=== PATIENT | male | born 1995 | race Caucasian/White ===

== ENCOUNTER 2021-04-17 04:58 | Emergency (ER) | payer OTHER, SELFPAY ==
[2021-04-17 05:00] VITALS: BP 139/93; PULSE 139; RESP 16; TEMP 37.9; O2SAT 97
--- NOTE | 2021-04-17 05:11 | ED.NAVMDI ---
HPI - Nausea/Vomiting/Diarrhea General Chief complaint: Nausea/Vomiting/Diarrhea Stated complaint: vomit blood and diarrhea Time Seen by Provider: 04/17/21 05:06 Source: patient History of Present Illness HPI Narrative: Patient presents with nausea vomiting and diarrhea. Patient ports he has had diarrhea all evening and this prior to calling EMS he had multiple episodes of emesis his last episode he noted dark brown-red substance he was concerned about blood so he came to the ER for evaluation. Reports he had Taco Crawford this evening does not remember any red dye substances. He denies any NSAID use never had symptoms like this before he was concerned so came to ER for evaluation. Reports he has intermittent mild sharp pain in his upper abdomen denies any blood or melena in his stool he denies any fevers Related Data Allergies Allergy/AdvReac Type Severity Reaction Status Date / Time No Known Allergies Allergy Verified 04/17/21 06:21 Review of Systems Review of Systems: CONSTITUTIONAL: Denies fever, chills, or sweats. EYES: Denies visual changes, redness, or discharge. ENT: Denies rhinorrhea, congestion, sore throat, or otalgia. CARDIOVASCULAR: Denies chest pain, palpitations, or edema. RESPIRATORY: Denies cough or dyspnea. GASTROINTESTINAL: Abdominal pain with nausea vomiting diarrhea GENITOURINARY: Denies dysuria or hematuria. SKIN: Denies rash or itching. MUSCULOSKELETAL: Denies back pain, joint pain, or myalgia. NEUROLOGIC: Denies headache, numbness, dizziness, or weakness. PSYCHIATRIC: Denies anxiety or depression. All systems reviewed & are unremarkable except as noted in HPI and below PMFSH Past Medical History Medical History (Updated 04/17/21 @ 06:19 by Calvin Clancy MD) Patient denies significant medical history Social History Social History (Updated 04/17/21 @ 05:16 by Calvin Clancy MD) Smoking status: Never smoker Alcohol intake: current Substance use type: marijuana Exam Narrative: GENERAL: Well-appearing, well-nourished, and in no acute distress. HEAD: Normocephalic, atraumatic. EYES: PERRLA and EOMI. ENT: Nares clear, no rhinorrhea or epistaxis. Mucous membranes moist. NECK: Supple. No masses. No JVD CHEST: Clear to auscultation. No respiratory distress. No wheezes rales or rhonchi HEART: Regular rate and rhythm. No murmur heard. Normal peripheral pulses. ABDOMEN: Soft, nontender, nondistended, normal active bowel sounds. EXTREMITIES: Normal range of motion. No edema. SKIN: Warm, dry, no rash. NEURO: No focal deficits. Alert and oriented x3. PSYCH: Normal mood and affect. Course Reevaluation(s) Reevaluation #1: Patient reports feeling much improved results and plan reviewed with patient. Patient is comfortable with the outpatient plan. Patient will complete fluids prior to discharge and obtain another set of vital signs. Heart rate has been gradually improved throughout his ER stay Date: 04/17/21 Time: 06:15 Vital Signs Vital signs: Vital Signs Temperature 37.9 C H 04/17/21 05:00 Pulse Rate 139 H 04/17/21 05:00 Respiratory Rate 16 04/17/21 05:00 Blood Pressure 139/93 H 04/17/21 05:00 Pulse Oximetry 97 04/17/21 05:00 Temperature 37.9 C H 04/17/21 05:00 Pulse Rate 105 H 04/17/21 06:31 Respiratory Rate 22 H 04/17/21 06:31 Blood Pressure 137/70 04/17/21 06:00 Pulse Oximetry 100 04/17/21 06:31 MDM - Nausea/Vomiting/Diarrhea MDM Narrative Medical decision making narrative: H&P as above, vs with tachycardia improving with fluids, pt looks clinically well, exam with nonacute abdomen, labs with mild leukocytosis otherwise reassuring no elevation in BUN to creatinine, additional labs/img considered, symptomatic relief available as needed, on reevaluation pt continues to looks clinically well. Suspect viral gastroenteritis causing Farhana-Amaya tear, dns significant hemorrhage, mediastinitis, severe sepsis, severe dehydration. plan to tx/monitor as
[2021-04-17 05:17] LABS: Basophils Percent Auto 0.2 % (0.2-1.2); Eosinophils Absolute Auto 0.1 K/mm3 (0-0.3); Eosinophils Percent Auto 0.4 % (0-4.4); Hematocrit 46.2 % (42.0-52.0); Hemoglobin 16.7 g/dL (14.0-18.0); Immature Granulocyte Absolute 0.05 K/mm3 (0.00-0.031); Immature Granulocyte Percent A 0.4 % (0-0.5); Lymphocytes Absolute Auto 0.76 K/mm3 (0.9-3.2); Lymphocytes Percent Auto 6.1 % (18.3-44.2); Mean Corpuscular HGB Conc 36.1 g/dl (32-36); Mean Corpuscular Hemoglobin 29.5 pg (26-34); Mean Corpuscular Volume 81.6 fl (80-100); Mean Platelet Volume 8.5 fl (7.4-10.4); Monocytes Absolute Auto 0.5 K/mm3 (0.1-0.6); Monocytes Percent Auto 4.2 % (2.6-8.5); Neutrophils Absolute Auto 11.1 K/mm3 (1.3-6.7); Neutrophils Percent Auto 88.7 % (45.5-73.1); Platelet Count Result 253 k/mm3 (150-375); Red Blood Count 5.66 M/mm3 (4.6-6.20); Red Cell Distribution Width 11.8 % (11.5-14.5); White Blood Count 12.5 K/mm3 (4.5-10.0)
[2021-04-17 05:33] LABS: Alanine Aminotransferase 25 U/L (4-50); Albumin Level 4.6 g/dL (3.5-5.1); Alkaline Phosphatase 81 U/L (38-126); Anion Gap 9 mmol/L (8-16); Aspartate Amino Transferase 26 U/L (17-59); Bilirubin,Total 0.7 mg/dL (0.2-1.3); Blood Urea Nitrogen 13 mg/dL (9-20); Calcium 9.1 mg/dL (8.4-10.2); Carbon Dioxide 28 mmol/L (22-30); Chloride 102 mmol/L (98-107); Estimated CRCL calculation 158 ml/min; Estimated Glomerular Filt Rate > 60; Glucose 123 mg/dL (65-110); Lipase 34 U/L (23-300); Potassium 3.9 mmol/L (3.4-5.0); Sodium 139 mmol/L (137-145)
[2021-04-17 06:00] VITALS: BP 137/70; PULSE 119; RESP 24; O2SAT 100
[2021-04-17] MEDS: ONDANSETRON INJ 4 MG/2 ML VIAL IV PUSH (06:03)
[2021-04-17] MEDS: SODIUM CHLORIDE 0.9% IV 1,000 ML 999 ML IV CONT (06:03)
[2021-04-17 06:31] VITALS: PULSE 105; RESP 22; O2SAT 100
== END 2021-04-17 06:31 | disposition home or self-care (01) ==
PROVIDERS: Emergency Provider Emergency Medicine
DX: K22.6 Gastro-esophageal laceration-hemorrhage syndrome (principal); R11.2 Nausea with vomiting, unspecified; R19.7 Diarrhea, unspecified
CPT/HCPCS: 36415; 80053; 83690; 85025; 96374; 99284; J2405; J7030

== ENCOUNTER 2021-05-27 12:28 | Emergency (ER) | payer OTHER, SELFPAY ==
[2021-05-27 12:32] VITALS: BP 165/79; PULSE 92; RESP 18; TEMP 36.7; O2SAT 99
[2021-05-27 12:45] LABS: Basophils Percent Auto 0.3 % (0.2-1.2); Eosinophils Absolute Auto 0.3 K/mm3 (0-0.3); Hematocrit 49.1 % (42.0-52.0); Hemoglobin 17.3 g/dL (14.0-18.0); Immature Granulocyte Absolute 0.01 K/mm3 (0.00-0.031); Immature Granulocyte Percent A 0.1 % (0-0.5); Lymphocytes Absolute Auto 2.19 K/mm3 (0.9-3.2); Mean Corpuscular HGB Conc 35.2 g/dl (32-36); Mean Corpuscular Hemoglobin 29.4 pg (26-34); Mean Corpuscular Volume 83.5 fl (80-100); Mean Platelet Volume 8.9 fl (7.4-10.4); Monocytes Absolute Auto 0.4 K/mm3 (0.1-0.6); Monocytes Percent Auto 5.7 % (2.6-8.5); Neutrophils Absolute Auto 4.6 K/mm3 (1.3-6.7); Neutrophils Percent Auto 60.9 % (45.5-73.1); Platelet Count Result 268 k/mm3 (150-375); Red Blood Count 5.88 M/mm3 (4.6-6.20); Red Cell Distribution Width 11.9 % (11.5-14.5); White Blood Count 7.6 K/mm3 (4.5-10.0)
[2021-05-27 12:55] LABS: Alanine Aminotransferase 30 U/L (4-50); Albumin Level 4.8 g/dL (3.5-5.1); Alkaline Phosphatase 78 U/L (38-126); Anion Gap 10 mmol/L (8-16); Aspartate Amino Transferase 28 U/L (17-59); Bilirubin,Total 0.7 mg/dL (0.2-1.3); Blood Urea Nitrogen 10 mg/dL (9-20); Calcium 9.5 mg/dL (8.4-10.2); Carbon Dioxide 26 mmol/L (22-30); Chloride 101 mmol/L (98-107); Estimated CRCL calculation 143 ml/min; Estimated Glomerular Filt Rate > 60; Glucose 124 mg/dL (65-110); Lipase 50 U/L (23-300); Sodium 137 mmol/L (137-145)
--- NOTE | 2021-05-27 16:04 | ED.NAVMDI ---
HPI - Nausea/Vomiting/Diarrhea General Chief complaint: Nausea/Vomiting/Diarrhea Stated complaint: nausea Time Seen by Provider: 05/27/21 15:26 Source: patient Mode of arrival: ambulatory Limitations: no limitations History of Present Illness HPI Narrative: Pt is a 26 y/o male, presents to ED via POV with intermittent episodes of epigastric burning and belching for the past few months that worsened the past 3 days. He denies associated fevers or chills, CP, SOB, abdominal pain, NVDC, hematochezia or melena. His symptoms worsen after eating, when lying supine and when bending over at the waist. He has not attempted any modifying factors. He denies any additional associated symptoms. Associated nausea: No Associated abdominal pain: No Location of pain: none Exacerbating factors: eating and other (refer to HPI) Relieving factors: none Related Data Allergies Allergy/AdvReac Type Severity Reaction Status Date / Time No Known Allergies Allergy Verified 05/27/21 15:20 Review of Systems Review of Systems: refer to HPI Gastrointestinal: Gastrointestinal: Reports as per HPI and Reports no additional gastrointestinal [facility] Past Medical History Medical History Patient denies significant medical history Social History Social History (Updated 04/17/21 @ 05:16 by Calvin Clancy MD) Smoking status: Never smoker Alcohol intake: current Substance use type: marijuana Exam Const: General: cooperative, healthy appearing, comfortable, no acute distress, alert, awake and Physically active Orientation/consciousness: oriented to person, oriented to place, oriented to time and patient oriented x3 Limitations: no limitations HENMT: Head: normal to inspection Ears: hearing grossly normal bilaterally and external ears normal General nose exam: Normal external nose present Face and sinus: normal facial exam, sinuses nontender and face symmetric Mouth: Yes Normal oral and palatal mucosa present and Yes lip normal Teeth and gingiva: dentition normal and gingiva normal Throat: posterior oropharynx normal Eyes: General: appearance normal, both eyes and all related structures Visual Smith: normal visual smith by confrontation Alignment and Position: alignment normal Periorbital: periorbital findings normal Eyelids: eyelids normal Conjunctivae: conjunctivae normal Sclera: sclerae normal Cornea: corneas normal Pupils: Equal, round and reactive pupils present EOM: EOMs intact bilaterally Direct Ophthalmoscopy: normal light reflex Neck: Neck: normal visual inspection, full ROM, no lymphadenopathy, no meningeal signs and trachea midline Thyroid: thyroid normal Lymphatic: no lymphadenopathy noted Chest: Chest palpation & inspection: normal inspection of the chest Resp: Effort & Inspection: normal respiratory effort and able to speak in complete sentences Auscultation: clear to auscultation bilaterally Cardio: Jugular venous distension: no JVD Palpation: normal PMI Rate: regular rate Rhythm: regular rhythm Heart sounds: S1 normal heart sound present and S2 normal heart sound present GI: Inspection: normal to inspection GI Palp: Yes Soft to palpation (NT, ND, no HSM, no CVA TTP) Auscultation: normal bowel sounds Rectal Exam: deferred Back/Spine/Pelvis: Back: no CVA tenderness Skin: Lesions: no lesions Rashes: no rashes Course Course Emergency Course: Pt reports his symptoms have improved, epigastric burning is resolved, belching is much better. Plan to discharge home with protonix for home with FU outpatient with PCP for GI referral if symptoms are not improving. Pt is agreeable with plan. Vital Signs Vital signs: Vital Signs Temperature 36.7 C 05/27/21 12:32 Pulse Rate 92 05/27/21 12:32 Respiratory Rate 18 05/27/21 12:32 Blood Pressure 165/79 H 05/27/21 12:32 Pulse Oximetry 99 05/27/21 12:32 Temperature 36.7 C 05/27/21 12:32
[2021-05-27] MEDS: PANTOPRAZOLE SOD SESQUIHYDRATE 20 MG TAB PO (16:16)
[2021-05-27] MEDS: BELLADONNA ALK/PHENOB ELIX 10 ML, MAG HYDROX/ALUMINUM HYD/SIMETH 30 ML, LIDOCAINE HCL 2... PO (16:16)
[2021-05-27 16:27] LABS: Add Urine Microscopic? YES; Appearance Urine Clear (Clear); Bilirubin Urine Negative (Negative); Blood Urine 1+ (Negative); Color Urine Yellow (Yellow); Glucose Urine UA Negative (Negative); Ketones Urine Negative (Negative); Leukocyte Esterase Ur Negative LEU/UL (Negative); Nitrate Urine Negative (Negative); Protein Urine Negative (Negative); RBC Urine 0-2 /hpf (0-2); Specific Grav Ur 1.015 (1.001-1.035); Urobilinogen Urine Negative mg/dL (<2.0); WBC Urine 0-3 /hpf
== END 2021-05-27 17:05 | disposition home or self-care (01) ==
PROVIDERS: Emergency Medicine; Emergency Provider Nurse Practitioner Family
DX: K21.9 Gastro-esophageal reflux disease without esophagitis (principal)
CPT/HCPCS: 36415; 80053; 81001; 83690; 85025; 99283; A9270

== ENCOUNTER 2021-06-04 11:34 | Outpatient (CLI) | payer OTHER, SELFPAY ==
[2021-06-04 12:21] LABS: Cholesterol 176 mg/dL (0-200); HDL Direct 41 mg/dL; Triglycerides 160 mg/dL (<150)
[2021-06-04 12:25] LABS: Hemoglobin A1C 4.9 % (<5.7)
[2021-06-04 12:32] LABS: LDL Cholesterol Direct 95 mg/dL
[2021-06-04 13:01] LABS: Vitamin D 25 Hydroxy 33.8 ng/mL
== END 2021-06-04 11:35 | disposition home or self-care (01) ==
LOC: ANHLAB 11:35
PROVIDERS: Visit Provider Family Medicine
DX: R73.9 Hyperglycemia, unspecified (principal); E55.9 Vitamin D deficiency, unspecified; Z13.220 Encounter for screening for lipoid disorders
CPT/HCPCS: 36415; 80061; 82306; 83036

== ENCOUNTER 2023-01-02 18:06 | Emergency (ER) | payer OTHER, SELFPAY ==
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
[2023-01-02 18:20] VITALS: BP 152/91; PULSE 112; RESP 18; O2SAT 99
== END 2023-01-02 18:53 | disposition home or self-care (01) ==
PROVIDERS: Emergency Provider Emergency Medicine
DX: S39.92XA Unspecified injury of lower back, initial encounter (principal); V43.52XA Car driver injured in collision with other type car in traffic accident, initial encounter
CPT/HCPCS: 99282

== ENCOUNTER 2023-01-16 17:23 | Emergency (ER) | payer OTHER, SELFPAY ==
[2023-01-16] VITALS (15 sets, daily range): BP systolic 97–109; BP diastolic 60–74; PULSE 100–122; RESP 12–28; TEMP 37; O2SAT 96–99
--- NOTE | ~2023-01-16 | XR_ITS ---
EXAMINATION: XR chest 1V portable Exam Date/Time: 01/16/2023 20:00 DRAGSAW OPERATOR HISTORY: URI/Tachycardia, COUGH Comparison: None. RESULT: Lines, tubes, and devices: None. Lungs and pleura: Rightward rotation, slightly low volumes with crowding, otherwise clear. Cardiomediastinal silhouette: Unremarkable. Other: No acute osseous or upper abdominal finding. IMPRESSION: No acute cardiopulmonary process. Reviewed, dictated and finalized at location K. SAW OPERATOR
--- NOTE | 2023-01-16 20:12 | ECG_ITS ---
Measurements Intervals [place] Rate: 117 P: 33 NH: 112 QRS: -11 QRSD: 93 T: 33 QT: 303 QTc: 423 Interpretive Statements SINUS TACHYCARDIA WITH SHORT NH INTERVAL BORDERLINE R WAVE PROGRESSION, ANTERIOR LEADS MINIMAL Q WAVES- HIGH LATERAL LEADS ABNORMAL ECG NO PREVIOUS ECG AVAILABLE FOR COMPARISON Electronically Signed On 01-16-2023 22:15:06 TEA TASTER by Gaurav Wallis D.O.
[2023-01-16 20:26] LABS: Basophils Percent Auto 0.1 % (0.2-1.2); Eosinophils Percent Auto 0.2 % (0-4.4); Hematocrit 45.4 % (42.0-52.0); Hemoglobin 16.1 g/dL (14.0-18.0); Immature Granulocyte Absolute 0.02 K/mm3 (0.00-0.031); Immature Granulocyte Percent A 0.2 % (0-0.5); Lymphocytes Absolute Auto 0.33 K/mm3 (0.9-3.2); Lymphocytes Percent Auto 3.8 % (18.3-44.2); Mean Corpuscular HGB Conc 35.5 g/dl (32-36); Mean Corpuscular Hemoglobin 29.2 pg (26-34); Mean Corpuscular Volume 82.4 fl (80-100); Mean Platelet Volume 8.7 fl (7.4-10.4); Monocytes Absolute Auto 0.5 K/mm3 (0.1-0.6); Monocytes Percent Auto 5.8 % (2.6-8.5); Neutrophils Absolute Auto 7.7 K/mm3 (1.3-6.7); Neutrophils Percent Auto 89.9 % (45.5-73.1); Platelet Count Result 221 k/mm3 (150-375); Red Blood Count 5.51 M/mm3 (4.6-6.20); Red Cell Distribution Width 11.6 % (11.5-14.5); White Blood Count 8.6 K/mm3 (4.5-10.0)
--- NOTE | 2023-01-16 20:32 | ED.GENADULT ---
HPI - General Adult General Chief complaint: Nausea/Vomiting/Diarrhea Stated complaint: sinus pressure, nausea Time Seen by Provider: 01/16/23 20:04 History of Present Illness HPI narrative: This is a 27-year-old male presenting ED with 1 day of URI symptoms. Patient's symptoms azo congestion sore throat and ear pain. He has also had 1 episode of nausea and vomiting. Patient denies chest pain, shortness of breath, abdominal pain, or urinary symptoms. Decreased oral intake. No diarrhea. Related Data Home Medications Medication Instructions Recorded Confirmed cyclobenzaprine 10 mg tablet 10 mg PO TID 01/02/23 naproxen 500 mg tablet 500 mg PO BID 01/02/23 Allergies Allergy/AdvReac Type Severity Reaction Status Date / Time No Known Allergies Allergy Verified 01/16/23 17:40 [facility] Past Medical History Medical History Broken toe Patient denies significant medical history Social History Social History Smoking status: Never smoker Alcohol intake: never Substance use: current Substance use type: marijuana Exam Narrative: APPEARANCE: No apparent distress. Head: Bilateral cerumen impaction in the ears, posterior pharynx is non erythematous with no exudates EYES: EOMI, NOSE: Atraumatic NECK: Trachea midline RESPIRATORY: No increased rate of breathing, clear to auscultation CARDIOVASCULAR: Tachycardic, no peripheral edema ABDOMINAL: Non-distended nontender MUSCULOSKELETAl: No obvious deformities NEURO: Alert. Moving 4/4 extremities SKIN:: Warm, dry. Normal color PSYCHIATRIC: Normal affect Course Vital Signs Vital signs: Vital Signs Temperature 98.6 F 01/16/23 17:39 Pulse Rate 120 H 01/16/23 17:39 Respiratory Rate 20 01/16/23 17:39 Blood Pressure 109/71 01/16/23 17:39 Pulse Oximetry 96 01/16/23 17:39 Temperature 98.6 F 01/16/23 17:39 Pulse Rate 104 H 01/16/23 22:00 Respiratory Rate 26 H 01/16/23 22:00 Blood Pressure 101/74 01/16/23 21:16 Pulse Oximetry 96 01/16/23 22:00 Oxygen Delivery Room Air 01/16/23 20:23 Medical Decision Making MDM Narrative Medical decision making narrative: -Course: 27-year-old male presenting with 1 day of flu-like symptoms. Tachycardic on initial presentation. Given NSAIDs and fluid resuscitation. Tachycardia improved. Patient found have influenza A. No other health problems. Patient will undergo trial of outpatient management. Discussed risk benefits of Tamiflu the patient declined. -DDX includes but is not limited to: Viral syndrome, sinusitis, ear infection, bronchitis, flu -Co-morbidities complicating care: GERD -Social determinants of health: Works at the [email or web address], lives with his dad -Independent interpretation of studies: Influenza a positive. CBC normal her metabolic panel unremarkable. Chest x-ray unremarkable per Independent EKG interpretation: Rhythm [sinus], Rate [117], [place] -[normal], [place] -[normal], QRS [narrow], QTC [normal], T waves -[negative for concerning inversions], ST Segments - [Negative for concerning elevations] Final interpretations: Sinus tach -Interventions: 3 L normal saline, Toradol, Tylenol, Zofran -Shared decision making / Disposition: Discharge -RX Motrin Tylenol Zofran Vital Signs Vital Signs: Vital Signs Temperature 98.6 F 01/16/23 17:39 Pulse Rate 120 H 01/16/23 17:39 Respiratory Rate 20 01/16/23 17:39 Blood Pressure 109/71 01/16/23 17:39 Pulse Oximetry 96 01/16/23 17:39 Temperature 98.6 F 01/16/23 17:39 Pulse Rate 104 H 01/16/23 22:00 Respiratory Rate 26 H 01/16/23 22:00 Blood Pressure 101/74 01/16/23 21:16 Pulse Oximetry 96 01/16/23 22:00 Oxygen Delivery Room Air 01/16/23 20:23 Lab Data 01/16/23 20:19 01/16/23 20:19 Labs: Lab Results 01/16/23 01/16/23 Range/Units 20:13 20:19 WBC
[2023-01-16 20:38] LABS: Alanine Aminotransferase 30 U/L (6-50); Albumin Level 4.6 g/dL (3.5-5.1); Alkaline Phosphatase 64 U/L (38-126); Anion Gap 12 mmol/L (8-16); Aspartate Amino Transferase 28 U/L (17-59); Bilirubin,Total 0.6 mg/dL (0.2-1.3); Blood Urea Nitrogen 9 mg/dL (9-20); Calcium 9.3 mg/dL (8.4-10.2); Carbon Dioxide 22 mmol/L (22-30); Chloride 103 mmol/L (98-107); Estimated CRCL calculation 161 ml/min; Estimated Glomerular Filt Rate > 60; Glucose 113 mg/dL (65-110); Lipase 65 U/L (23-300); Potassium 3.6 mmol/L (3.4-5.0); Sodium 137 mmol/L (137-145)
[2023-01-16 20:54] LABS: Influenza A QL RT-PCR Positive (Negative); Influenza B QL RT-PCR Negative (Negative); RSV RNA, RT-PCR Negative (Negative); SARS-CoV-2 RNA PCR Negative (Negative)
[2023-01-16 20:54] LABS: Strep Group A RT-PCR NOT DETECTED (Negative)
[2023-01-16] MEDS: ONDANSETRON INJ 4 MG/2 ML VIAL IV PUSH (21:15)
[2023-01-16] MEDS: SODIUM CHLORIDE 0.9% IV 3,000 ML 999 ML IV CONT (21:16)
[2023-01-16] MEDS: ACETAMINOPHEN 500 MG TABLET 1000 MG PO (21:16)
--- NOTE | 2023-01-16 21:22 | PC.NURSE ---
pt does not want NSAIDs because they state it hurts their stomach
== END 2023-01-16 23:33 | disposition home or self-care (01) ==
PROVIDERS: Emergency Provider Emergency Medicine
DX: J10.1 Influenza due to other identified influenza virus with other respiratory manifestations (principal); Z20.822 Contact with and (suspected) exposure to COVID-19; R00.0 Tachycardia, unspecified; R94.31 Abnormal electrocardiogram [ECG] [EKG]
CPT/HCPCS: 36415; 71045; 80053; 83690; 85025; 87637; 87651; 93005; 96361; 96374; 99284; A9270; J2405; J7030

== ENCOUNTER 2023-04-30 07:55 | Emergency (ER) | payer OTHER, SELFPAY ==
[2023-04-30 07:57] VITALS: BP 142/99; PULSE 117; RESP 24; TEMP 36.1; O2SAT 100
[2023-04-30 08:06] VITALS: O2SAT 98
[2023-04-30 09:18] LABS: Strep Group A RT-PCR NOT DETECTED (Negative)
[2023-04-30 09:29] LABS: Influenza A QL RT-PCR Negative (Negative); Influenza B QL RT-PCR Negative (Negative); RSV RNA, RT-PCR Negative (Negative); SARS-CoV-2 RNA PCR Negative (Negative)
--- NOTE | 2023-04-30 09:32 | ED.GENADULT ---
HPI - General Adult General Chief complaint: Upper Respiratory Infection Stated complaint: panic attack/sore throat Time Seen by Provider: 04/30/23 08:13 History of Present Illness HPI narrative: Patient is a 28-year-old gentleman who presents emergency department with chief complaint of sore throat and upper respiratory symptoms. The patient states that he has had a sore throat for a few days and has been taking NyQuil the patient states he took NyQuil fell asleep with his arm up a bow above his head with the left side of his face leaning against it and when he woke up he had a tingly sensation in his face and his arm felt a little tingly that subsequently has resolved patient states that he looked pale whenever he woke up and his roommate suggested that he be checked out. The patient states he has had some chills also reports that he has history of anxiety disorder and felt very anxious and had a panic attack on the way to the emergency department. The patient denies any other complaints. Related Data Home Medications Medication Instructions Recorded Confirmed cyclobenzaprine 10 mg tablet 10 mg PO TID 01/02/23 naproxen 500 mg tablet 500 mg PO BID 01/02/23 Allergies Allergy/AdvReac Type Severity Reaction Status Date / Time No Known Allergies Allergy Verified 04/30/23 08:08 Review of Systems Review of Systems: A 10 system review of systems was completed on the patient and is negative except for what is stated in the HPI. Nursing and ancillary documentation was reviewed. PMFSH Past Medical History Medical History Broken toe Patient denies significant medical history Social History Social History Smoking status: Never smoker Alcohol intake: never Substance use: current Substance use type: marijuana Exam Narrative: GENERAL: Well-appearing, well-nourished, and in no acute distress. HEAD: Normocephalic, atraumatic. EYES: PERRLA and EOMI. ENT: Nares clear, no rhinorrhea or epistaxis. Mucous membranes moist. NECK: Supple. CHEST: Clear to auscultation. No respiratory distress. HEART: Regular rate and rhythm. No murmur heard. Normal peripheral pulses. ABDOMEN: Soft, nontender, nondistended, normal active bowel sounds. EXTREMITIES: Normal range of motion. No edema. SKIN: Warm, dry, no rash. NEURO: No focal deficits. Alert and oriented x3. PSYCH: Normal mood and affect. Course Vital Signs Vital signs: Vital Signs Temperature 36.1 C L 04/30/23 07:57 Pulse Rate 117 H 04/30/23 07:57 Respiratory Rate 24 H 04/30/23 07:57 Blood Pressure 142/99 H 04/30/23 07:57 Pulse Oximetry 100 04/30/23 07:57 Oxygen Delivery Room Air 04/30/23 07:57 Temperature 36.1 C L 04/30/23 07:57 Pulse Rate 117 H 04/30/23 07:57 Respiratory Rate 24 H 04/30/23 07:57 Blood Pressure 142/99 H 04/30/23 07:57 Pulse Oximetry 98 04/30/23 08:06 Oxygen Delivery Room Air 04/30/23 08:06 Medical Decision Making MDM Narrative Medical decision making narrative: Differential diagnosis includes viral syndrome, strep pharyngitis, anxiety Patient is hemodynamically stable in the emergency department Strep was negative COVID with flu and RSV were negative Vital Signs Vital Signs: Vital Signs Temperature 36.1 C L 04/30/23 07:57 Pulse Rate 117 H 04/30/23 07:57 Respiratory Rate 24 H 04/30/23 07:57 Blood Pressure 142/99 H 04/30/23 07:57 Pulse Oximetry 100 04/30/23 07:57 Oxygen Delivery Room Air 04/30/23 07:57 Temperature 36.1 C L 04/30/23 07:57 Pulse Rate 117 H 04/30/23 07:57 Respiratory Rate 24 H 04/30/23 07:57 Blood Pressure 142/99 H 04/30/23 07:57 Pulse Oximetry 98 04/30/23 08:06 Oxygen Delivery Room Air 04/30/23 08:06 Lab Data Labs: Lab Results 04/30/23 Range/Units 08:47 Influenza A (RT-PCR) Negative (Neg
[2023-04-30 09:53] VITALS: BP 116/77; PULSE 67; RESP 13; TEMP 36.6; O2SAT 97
== END 2023-04-30 09:56 | disposition home or self-care (01) ==
PROVIDERS: Emergency Provider Emergency Medicine
DX: J06.9 Acute upper respiratory infection, unspecified (principal); Z20.822 Contact with and (suspected) exposure to COVID-19
CPT/HCPCS: 87637; 87651; 99283

== ENCOUNTER 2023-05-02 11:27 | Emergency (ER) | payer OTHER, SELFPAY ==
[2023-05-02 11:37] VITALS: BP 163/77; PULSE 100; RESP 24; TEMP 36.6; O2SAT 98
--- NOTE | 2023-05-02 11:58 | ECG_ITS ---
Measurements Intervals [place] Rate: 79 P: 54 [place]: 128 QRS: 21 QRSD: 102 T: 40 QT: 367 QTc: 421 Interpretive Statements SINUS RHYTHM NORMAL ECG COMPARED TO ECG 01/16/2023 20:30:08 SINUS RHYTHM NOW PRESENT Electronically Signed On 05-02-2023 15:10:03 CDT by Gaurav Wallis D.O.
--- NOTE | 2023-05-02 12:08 | PC.NURSE ---
Pt to triage desk, states he is having pain in left side, wrapping from side to back. EKG obtained and shown to EDP
[2023-05-02 12:21] VITALS: BP 135/83; PULSE 115; RESP 18; O2SAT 98
--- NOTE | 2023-05-02 12:23 | PC.NURSE ---
Pt pacing in waiting area, tripped over feet and fell at triage desk. Pt assisted to wheelchair by RN/security and placed in wheelchair. tennis court attendant to triage, assessed pt. VS taken at this time.
--- NOTE | 2023-05-02 14:22 | ED.ANXIETY ---
HPI - Anxiety General Chief Complaint: Anxiety Stated Complaint: anxiety Time Seen by Provider: 05/02/23 13:55 Source: patient Mode of arrival: ambulatory Limitations: no limitations History of Present Illness HPI narrative: 28-year-old male presenting for anxiety reaction. He has had issues with anxiety for a long time especially walking out of the . Recently has come in the hospital twice for anxiety issues in the last few days. Requesting some help him. He says he had a panic attack on the way here and had some paresthesias in his hands and that has gotten better but he still feeling anxious and uncomfortable. No chest pain or shortness of breath Related Data Allergies Allergy/AdvReac Type Severity Reaction Status Date / Time No Known Allergies Allergy Verified 05/02/23 14:05 Review of Systems Review of Systems: All systems reviewed & are unremarkable except as noted in HPI and below PMFSH Past Medical History Medical History Broken toe Patient denies significant medical history Social History Social History Smoking status: Never smoker Alcohol intake: never Substance use: current Substance use type: marijuana Exam Narrative: Constitutional: anxious but otherwise well-appearing Head: Atraumatic, no deformities. Eyes: Pupils equal, round, and reactive to light. Neck: Supple, no tracheal deviation, no JVD. ENMT: Mucous membranes moist Cardiovascular: S1, S2 auscultated. No murmurs, rubs, or gallops. No S3/S4. Normal Distal pulses. No peripheral edema. Respiratory: Lung sounds equal. No wheezes, rales, or rhonchi. Gastrointestinal: Abdomen was soft and non-tender. Non-distended. No rebound or guarding. Genitourinary: Deferred Musculoskeletal: Normal muscle tone and bulk. No obvious deformities or tenderness over extremities. Skin: No rashes. Neurological: Strength 5/5 in extremities. Cranial nerves I-XII grossly intact. Distal sensation intact. Mental Status: Awake, alert and oriented x3. Follows commands. No suicidal ideation or plan. No homicidal ideation or plan. Course Vital Signs Vital signs: Vital Signs Temperature 36.6 C 05/02/23 11:37 Pulse Rate 100 05/02/23 11:37 Respiratory Rate 24 H 05/02/23 11:37 Blood Pressure 163/77 H 05/02/23 11:37 Pulse Oximetry 98 05/02/23 11:37 Oxygen Delivery Room Air 05/02/23 11:37 Temperature 36.6 C 05/02/23 11:37 Pulse Rate 115 H 05/02/23 12:21 Respiratory Rate 18 05/02/23 12:21 Blood Pressure 135/83 05/02/23 12:21 Pulse Oximetry 98 05/02/23 12:21 Oxygen Delivery Room Air 05/02/23 11:37 MDM - Anxiety MDM Narrative Medical decision making narrative: 28-year-old male with history of anxiety and panic disorder presenting with anxiety attack today. On exam initially was tachycardic in triage but no longer tachycardic. Reported having some paresthesias in his fingers but that is gone now that his breathing is improved. Still does appear quite anxious. Will give a dose of Xanax here for his anxiety and short prescription for Xanax. He just lost his insurance and is trying to change a new 1 suicidal trouble getting into a clinic to see a psychiatrist so this short prescription may benefit him. Pt feeling improved and would like to go home at this point. Return precautions were given to the patient include any new or worsening symptoms or development of and not limited to any chest pain, shortness of breath, lightheadedness, abdominal pain, fevers, chills. Patient understands and agrees. They are to follow-up with her PCP. All questions were answered. I reviewed the patient's vital signs, history, allergies, and labs and imaging workup. Discharge Plan Discharge Clinical Impression: Panic disorder, Acute anxiety Patient Disposition: Home, Self-Care Condition: Stable Instr
[2023-05-02 14:30] VITALS: BP 140/92; PULSE 96; RESP 15; O2SAT 99
[2023-05-02] MEDS: ALPRAZolam (*CRX) 0.5 MG TABLET 0.25 MG PO (14:30)
== END 2023-05-02 14:34 | disposition home or self-care (01) ==
PROVIDERS: Emergency Provider Emergency Medicine
DX: F41.0 Panic disorder [episodic paroxysmal anxiety] (principal)
CPT/HCPCS: 93005; 99283; A9270

== ENCOUNTER 2024-04-08 04:10 | Emergency (ER) | payer SELFPAY ==
--- OUTSIDE RECORDS SUMMARY | 2024-04-08 04:11 | XMS_ITS | Referral Summary ---
Author Organization [facility] Address [address] [place] [address] Care Team Providers Care Associate Professor Of Sociology Name Role Phone Unavailable Primary Care Provider Unavailabl e Source Comments [facility],non-owned Affiliates and Associated Physician Practices is amultiple site organization consisting of ambulatory clinics and hospital sitesin [place], [place], [place] and [place]. This disclosure is being madepursuant to the Care Everywhere program and may not contain all information available regarding this patient. Last updated 17.[facility] [employer] Allergies No known active allergies Medications Be aware that medications may not be up to date on this document. Always verify current medications with the patient. No known medications Social History Tobacco Use Types Packs/Day Years Used Date Smoking Tobacco: Never Assessed AUDIT-C Answer Date Recorded Q1: How often do you have a drink containing alcohol? Never 04/18/2023 Q2: How many drinks containi ng alcohol do you have on a typical day when you are drinking? Patient does not drink Q3: How often do you have si x or more drinks on one occasion? Never 04/18/2023 Sex and Gender Information Value Date Recorded Sex Assigned at Not on file Gender Identity Not on file Sexual Orientation Not on file Last Filed Vital Signs Vital Sign Reading Time Taken Comments Blood Pressure 123/79 04/18/2023 4:54 PM MAINTENANCE HELPER Pulse 76 04/18/2023 5:04 PM MAINTENANCE HELPER Temperature 36.6 C (97.8 F) 04/18/2023 4:54 PM MAINTENANCE HELPER Respiratory Rate 10 04/18/2023 5:04 PM MAINTENANCE HELPER Oxygen Saturation 99% 04/18/2023 5:04 PM MAINTENANCE HELPER Inhaled Oxygen Concentration - - Weight 129.3 kg (285 lb) 04/18/2023 4:54 PM MAINTENANCE HELPER Height 190.5 cm (6' 3 ) 04/18/2023 4:54 PM MAINTENANCE HELPER Body Mass Index 35.62 04/18/2023 4:54 PM MAINTENANCE HELPER Plan of Treatment Not on file
--- OUTSIDE RECORDS SUMMARY | 2024-04-08 04:11 | XMS_ITS | Patient Health Summary ---
Author Organization [facility] [employer] Address [address] [place] [address] Care Team Providers Care Clinic Coordinator Name Role Phone Unavailable Primary Care Provider Unavailabl e Note from [facility],non-owned Affiliates and Associated Physician Practices is amultiple site organization consisting of ambulatory clinics and hospital sitesin [place], [place], [place] and [place]. This disclosure is being madepursuant to the Care Everywhere program and may not contain all information available regarding this patient. Last updated 17.[facility] [employer] Allergies No known active allergies Medications Be [...] Comments Blood Pressure 123/79 04/18/2023 4:54 PM AWS SOFTWARE DEVELOPMENT ENGINEER Pulse 76 04/18/2023 5:04 PM AWS SOFTWARE DEVELOPMENT ENGINEER Temperature 36.6 C (97.8 F) 04/18/2023 4:54 PM AWS SOFTWARE DEVELOPMENT ENGINEER Respiratory Rate 10 04/18/2023 5:04 PM AWS SOFTWARE DEVELOPMENT ENGINEER Oxygen Saturation 99% 04/18/2023 5:04 PM AWS SOFTWARE DEVELOPMENT ENGINEER Inhaled Oxygen Concentration - - Weight 129.3 kg (285 lb) 04/18/2023 4:54 PM AWS SOFTWARE DEVELOPMENT ENGINEER Height 190.5 cm (6' 3 ) 04/18/2023 4:54 PM AWS SOFTWARE DEVELOPMENT ENGINEER Body Mass Index 35.62 04/18/2023 4:54 PM AWS SOFTWARE DEVELOPMENT ENGINEER Procedures * CARDIAC EKG ORDER(Performed 04/19/2023) * TROPONIN-I HIGH SENSITIVE REFLEX 1HOUR(Performed 04/18/2023) * XR CHEST 1VW PORTABLE(Performed 04/18/2023) Performed for Chest pain, unspecified type * COMPREHENSIVE METABOLIC PANEL(Performed 04/18/2023) * CBC W AUTO DIFFERENTIAL(Performed 04/18/2023) * TROPONIN-I HIGH SENSITIVE BASELINE + 1HR(Performed 04/18/2023) * EKG 12-LEAD(Performed 04/18/2023) Performed for Chest pain, unspecified type Results * CARDIAC EKG ORDER (04/19/2023 9:09 PM AWS SOFTWARE DEVELOPMENT ENGINEER) Narrative 04/19/2023 9:09 PM AWS SOFTWARE DEVELOPMENT ENGINEER Ordered by an unspecified provider. Scanned Document CARDIAC SERVICES ORD ERABLES * TROPONIN-I HIGH SENSITIVE REFLEX 1HOUR (04/18/2023 6:22 PM AWS SOFTWARE DEVELOPMENT ENGINEER) Pathologist [facility] Troponin I High Sensitive <3 <=35 ng/L 04/18/2023 6:46 PM AWS SOFTWARE DEVELOPMENT ENGINEER [facility] Delta Troponin I HS 04/18/2023 6:46 PM AWS SOFTWARE DEVELOPMENT ENGINEER [facility] Comment:Result exceeds linea rity range. A delta value is unable to be calculated. Blood BLOOD SPECIMEN / Unknown Venipuncture / Unknown 04/18/2023 6:22 PM AWS SOFTWARE DEVELOPMENT ENGINEER 04/18/2023 6:24 PM AWS SOFTWARE DEVELOPMENT ENGINEER Paola Mayer MD LAB - CHEMISTRY ORDE DAMION [facility] [address] [id number] * XR CHEST 1VW PORTABLE (04/18/2023 5:05 PM AWS SOFTWARE DEVELOPMENT ENGINEER) Anatomical Region Laterality Modality Chest Radiographic [place] 04/18/2023 7:28 PM AWS SOFTWARE DEVELOPMENT ENGINEER Impressions 04/18/2023 7:29 PM AWS SOFTWARE DEVELOPMENT ENGINEER IMPRESSION: No acute cardiopulmonary abnormalities. > Interpreting Provider: Aquiles Don MD on 04/18/2023 7:29 PM Narrative 04/18/2023 7:29 PM AWS SOFTWARE DEVELOPMENT ENGINEER PROCEDURE: XR CHEST 1VW PORTABLE DATE/TIME OF EXAM: 04/18/2023 5:06 PM CLINICAL INFORMATION: None relevant/not provided if blank. Indication: R07.9: Chest pain, unspecified Additional History: COMPARISON: None. FINDINGS: The mediastinum and heart are normal. The lungs are clear. No bony abnormality is seen. Procedure Note Aquiles Don MD - 04/18/2023 PROCEDURE: XR CHEST 1VW PORTABLE DATE/TIME OF EXAM: 04/18/2023 5:06 PM CLINICAL INFORMATION: None relevant/not provided if blank. Indication: R07.9: Chest pain, unspecified Additional History: COMPARISON: None. FINDINGS: The mediastinum and heart are normal. The lungs are clear. No bony abnormality is seen. IMPRESSION: No acute cardiopulmonary abnormalities. > Interpreting Provider: Aquiles Don MD on 04/18/2023 7:29 PM Paoal Mayer MD DIAGNOSTIC IMAGING O RDERABLES * TROPONIN-I HIGH SENSITIVE BASELINE + 1HR (04/18/2023 5:02 PM AWS SOFTWARE DEVELOPMENT ENGINEER) [facility] Troponin I High Sensitive <3 <=35 ng/L 04/18/2023 5:30 PM AWS SOFTWARE DEVELOPMENT ENGINEER [facility] Blood BLOOD SPECIMEN / Unknown Venipuncture / Unknown 04/18/2023 5:02 PM AWS SOFTWARE DEVELOPMENT ENGINEER 04/18/2023 5:04 PM AWS SOFTWARE DEVELOPMENT ENGINEER Paola Mayer MD LAB - CHEMISTRY AZEEM BRUNO [facility] Organization Address City/State/ZIP Co de Phone Number [facility] [address] [place] [address] * CBC W AUTO DIFFERENTIAL (04/18/2023 5:02 PM AWS SOFTWARE DEVELOPMENT ENGINEER) [facility] WBC 7.1 4.0 - 10.7 x10E9/L 04/18/2023 5:10 PM AWS SOFTWARE DEVELOPMENT ENGINEER [facility] RBC Count 5.60 4.30 - 5.80 x10E12/L 04/18/2023 5:10 PM AWS SOFTWARE DEVELOPMENT ENGINEER [facility] Hemoglobin 16.1 13.3 - 17.5 g/dL 04/18/2023 5:10 PM [facility] Hematocrit 45.3 38.7 - 51.1 % 04/18/2023 5:10 PM [facility] MCV 80.9 80.0 - 98.0 fL 04/18/2023 5:10 PM [facility] MCH 28.8 26.7 - 33.6 pg 04/18/2023 5:10 PM [facility] MCHC 35.5 31.7 - 36.3 g/dL 04/18/2023 5:10 PM [facility] RDW-CV 12.0 11.3 - 14.8 % 04/18/2023 5:10 PM [facility] Platelet Count 247 150 - 420 x10E9/L 04/18/2023 5:10 PM [facility] MPV 8.9 7.8 - 11.4 fL 04/18/2023 5:10 PM [facility] Neutrophil % 58.6 41.0 - 74.0 % 04/18/2023 5:10 PM [facility] Lymphocyte % 28.8 17.0 - 47.0 % 04/18/2023 5:10 PM [facility] Monocyte % 7.4 3.0 - 11.0 % 04/18/2023 5:10 PM [facility] Eosinophil % 4.5 0.0 - 7.0 % 04/18/2023 5:10 PM [facility] Basophil % 0.4 0.0 - 1.6 % 04/18/2023 5:10 PM [facility] Immature Granulocytes % 0.3 0.0 - 1.0 % 04/18/2023 5:10 PM [facility] Neutrophil Absolute 4.17 1.60 - 7.50 x10E9/L 04/18/2023 5:10 PM [facility] Lymphocyte Absolute 2.05 1.00 - 4.40 x10E9/L 04/18/2023 5:10 PM [facility] Monocyte Absolute 0.53 0.15 - 1.00 x10E9/L 04/18/2023 5:10 PM [facility] Eosinophil Absolute 0.32 0.00 - 0.60 x10E9/L 04/18/2023 5:10 PM [facility] Basophil Absolute 0.03 0.00 - 0.13 x10E9/L 04/18/2023 5:10 PM [facility] Blood BLOOD SPECIMEN / Unknown Venipuncture / Unknown 04/18/2023 5:02 PM AWS SOFTWARE DEVELOPMENT ENGINEER 04/18/2023 5:04 PM [facility] Pa[facility] MD LAB - HEMATOLOGY ORD ERABLES [facility] [address] [place] [address] * (ABNORMAL) COMPREHENSIVE METABOLIC PANEL (04/18/2023 5:02 PM [facility]) Glucose 97 70 - 105 mg/dL 04/18/2023 5:25 PM [facility] Sodium 141 136 - 145 mmol/L 04/18/2023 5:25 PM [facility] Potassium 4.0 3.5 - 5.1 mmol/L 04/18/2023 5:25 PM [facility] Chloride 108(H) 98 - 107 mmol/L 04/18/2023 5:25 PM [facility] CO2 21(L) 22 - 29 mmol/L 04/18/2023 5:25 PM [facility] Calcium 9.8 8.4 - 10.4 mg/dL 04/18/2023 5:25 PM [facility] Anion Gap 12 6 - 16 mmol/L 04/18/2023 5:25 PM [facility] BUN 9 5.3 - 18.7 mg/dL 04/18/2023 5:25 PM [facility] Creatinine 0.78 0.72 - 1.25 mg/dL 04/18/2023 5:25 PM [facility] Alkaline Phosphatase 55 40 - 150 U/L 04/18/2023 5:25 PM [facility] ALT 19 0 - 55 U/L 04/18/2023 5:25 PM [facility] AST 17 5 - 34 U/L 04/18/2023 5:25 PM [facility] Protein Total 7.1 6.4 - 8.3 gm/dL 04/18/2023 5:25 PM [facility] Albumin 4.1 3.4 - 5.0 gm/dL 04/18/2023 5:25 PM AWS SOFTWARE DEVELOPMENT ENGINEER [facility] Bilirubin Total 0.3 0.2 - 1.2 mg/dL 04/18/2023 5:25 PM [facility] eGFR by CKD-EPI >90 >=90 mL/min/1.7 3 m2 04/18/2023 5:25 PM AWS SOFTWARE DEVELOPMENT ENGINEER [facility] Blood BLOOD SPECIMEN / Unknown Venipuncture / Unknown 04/18/2023 5:02 PM AWS SOFTWARE DEVELOPMENT ENGINEER 04/18/2023 5:04 PM AWS SOFTWARE DEVELOPMENT ENGINEER Paola Mayer MD LAB - CHEMISTRY ORDE DAMION Performing Organization Address City/[facility]/ZIP Co de Phone Number [facility] [address] [place] [address] * EKG 12-LEAD (04/18/2023 4:55 PM AWS SOFTWARE DEVELOPMENT ENGINEER) Ventricular Rate 71 BPM [facility] Atrial Rate 71 BPM [facility] P-R Interval 126 ms [facility] QRS Duration ms 84 ms [facility] Q-T Interval ms 378 ms [facility] QTC Calculation (Bezet) 410 ms [facility] Calculated P [place] 21 degrees [facility] Calculated R [place] 8 degrees [facility] Calculated T [place] 35 degrees [facility] Interpretation EKG Normal sinus rhythm Normal ECG No previous ECGs available Confirmed by MARY RAE MD ([id number]) on 04/19/2023 10:51:44 AM [facility] 04/18/2023 4:55 PM AWS SOFTWARE DEVELOPMENT ENGINEER 04/19/2023 10:51 AM AWS SOFTWARE DEVELOPMENT ENGINEER Paola Mayer MD ECG ORDERABLES [facility]
--- OUTSIDE RECORDS SUMMARY | 2024-04-08 04:11 | XMS_ITS | Clinical Summary ---
Author Organization [facility] [employer] Address [address] [place] [address] Care Team Providers Care Signs Sales Representative Name Role Phone Unavailable Primary Care Provider Unavailabl e Source Comments [facility],non-owned Affiliates and Associated Physician Practices is amultiple site organization consisting of ambulatory clinics and hospital sitesin [place], [place], [place] and [place]. This disclosure is being madepursuant to the Care Everywhere program and may not contain all information available regarding this patient. Last updated 17.[facility] [employer] Allergies No known active allergies Medications Be [...] Comments Blood Pressure 123/79 04/18/2023 4:54 PM DELINQUENCY PREVENTION SOCIAL WORKER Pulse 76 04/18/2023 5:04 PM DELINQUENCY PREVENTION SOCIAL WORKER Temperature 36.6 C (97.8 F) 04/18/2023 4:54 PM DELINQUENCY PREVENTION SOCIAL WORKER Respiratory Rate 10 04/18/2023 5:04 PM DELINQUENCY PREVENTION SOCIAL WORKER Oxygen Saturation 99% 04/18/2023 5:04 PM DELINQUENCY PREVENTION SOCIAL WORKER Inhaled Oxygen Concentration - - Weight 129.3 kg (285 lb) 04/18/2023 4:54 PM DELINQUENCY PREVENTION SOCIAL WORKER Height 190.5 cm (6' 3 ) 04/18/2023 4:54 PM DELINQUENCY PREVENTION SOCIAL WORKER Body Mass Index 35.62 04/18/2023 4:54 PM DELINQUENCY PREVENTION SOCIAL WORKER Plan of Treatment Health Maintenance Due Date Last Done Comments HIV SCREENING 02/01/2011 HEPATITIS C SCREENING 01/28/2014 DTAP/TDAP/TD VACCINES (1 - Tdap) 02/01/2015 HEPATITIS B VACCINE (1 of 3 - 19+ 3-dose series) 02/01/2015 COVID-19 VACCINE (1 - 2023-2 5 season) 2023 INFLUENZA VACCINE (#1) 2023 DEPRESSION SCREENING 02/23/2024 ZOSTER VACCINE (1 of 2) 02/01/2046 HIB VACCINE Aged Out No longer eligi ble based on patient's age to complete this topic HPV VACCINE Aged Out No longer eligi ble based on patient's age to complete this topic MENINGOCOCCAL (Group B) VACCINE Aged Out No longer eligible based on patient's age to complete this topic MENINGOCOCCAL VACCINE Aged Out No joseph saloni eligible based on patient's age to complete this topic PNEUMOCOCCAL VACCINE Aged Out No long er eligible based on patient's age to complete this topic
--- OUTSIDE RECORDS SUMMARY | 2024-04-08 04:11 | XMS_ITS | Continuity of Care Document ---
Author Organization Address [address] [place] [address] Phone Care Team Providers Care Head Swamper Name Role Phone Unavailable Unavailable Unavailable Allergies, Adverse Reactions, Alerts Substance Reaction Status Criticality No Known Allergies Active No Inform ation Medications Medication Instructions Dosage Effective Dates (start - stop) Status Comments No Drug Therapy Prescribed Problems Condition Type Effective Dates (start - stop) Clini shane Status Comments No Known Problems Procedures Procedure Date MRI JOINT UPR EXTREM W/O DYE Medications - Current Meds Documented BMI - High With Follow Up Plan 17 Non Tobacco User NEW PATNT OV DTL EXAM X-RAY OF SHOULDER (COMPLETE) 2 V MIN. Advance Directives Directive Yes / No Effective Date File Name No Information Encounters Encounter Description Practice Location Reason(s) For Visit Diagnoses Date Provider Providers Copied on Encounter , [address] [place] [address], [id number] , [phone] [facility] MRI Primary osteoarthritis, left shoulder 7 No Information NEW PATNT OV DTL EXAM , [address] [place] [address], [id number] , [phone] [facility] left shoulder (chief complaint) Body mass index (BMI) 26.0-26.9, adultOsteoarthriti s of left acromioclavicular joint 7 No Information Family History Family Member Type Diagnosis Age At Onset Mother Problem (finding) Maternal history of irene betes mellitus Immunizations Vaccine Date Status Comments Influenza, seasonal, injectable administered Note: Invalid docume nted admin date was . ; Source: Other Provider Payers Payer name Insurance type Covered libertarian ID Authoriza tion(s) No Information Social History Type Description Quantity Date Captured Comments Alcohol Use Details Unknown Caffeine Use Details Unknown Tobacco Use Status Smoking Status No Information Sex Male Chief Complaint And Reason For Visit No Information Reason For Referral Reason For Referral No Information Plan Of Treatment Date Type Action Status Goal Dietary management education , guidance, and counseling completed History Of Present Illness Encounter Date Complaint History Of Prese nt Illness left shoulder Functional Status Date Functional Assessmen t No Information Medications Administered Medication Instructions Dosage Effective Dates (start - stop) Status Comments No Drug Therapy Prescribed Instructions Date Instruction Additional Infor mation Dietary management e ducation, guidance, and counseling Related to Body mass index (BMI) 26.0-26.9, adult Assessments Type Assessment Date No Information Patient Care Teams Name Effective Dates (start - stop) Status Members No Information
[2024-04-08 04:13] VITALS: BP 146/91; PULSE 93; RESP 20; TEMP 36.3; O2SAT 100
--- OUTSIDE RECORDS SUMMARY | 2024-04-08 04:30 | XMS_ITS | Continuity of Care Document ---
Author Organization [facility] Address [address] [place] [address] Phone Care Team Providers Care Logistics Team Lead Name Role Phone Unavailable Unavailable Unavailable Allergies, [...] Diagnoses Date Provider Providers Copied on Encounter [facility] , [address] [place] [address], [id number] , [phone] [facility] MRI Primary osteoarthritis, left shoulder 7 No Information NEW PATNT OV DTL EXAM [facility] , [address] [place] [address], [id number] , [phone] [facility] left shoulder (chief complaint) Body mass index (BMI) 26.0-26.9, adultOsteoarthriti s of left acromioclavicular joint 7 No Information Family History Family Member Type Diagnosis Age At Onset Mother Problem (finding) Maternal history of irene betes mellitus Immunizations Vaccine Date Status Comments Influenza, seasonal, injectable administered Note: Invalid docume nted admin date was . ; Source: Other Provider Payers Payer name Insurance type Covered alliance party ID Authoriza tion(s) No Information Social History [...]
[2024-04-08] MEDS: AMOXICILLIN 500 MG CAPSULE PO (04:42)
--- NOTE | 2024-04-08 04:46 | ED_ITS ---
HPI - Dental/Oral General Chief complaint: Dental/Oral Stated complaint: Right sided dental pain Time Seen by Provider: 04/08/24 04:12 History of Present Illness HPI Narrative: Patient reports bad toothache that has been ongoing on and off for the last month, pain to his right lower molar. Tried taking Tylenol earlier without much improvement, he cannot take NSAIDs. Related Data Allergies Allergy/AdvReac Type Severity Reaction Status Date / Time NSAIDS (Non-Steroidal AdvReac Unknown Other Verified 04/08/24 04:15 Anti-Inflamma Review of Systems Review of Systems: All systems reviewed & are unremarkable except as noted in HPI and below PMFSH Past Medical History Medical History Broken toe Patient denies significant medical history Social History Social History Smoking status: Never smoker Alcohol intake: never Substance use: current Substance use type: marijuana Exam Narrative: EXAMINATION OF ORGAN SYSTEMS/BODY AREAS: Constitutional: Vital signs per nursing GENERAL:[No acute distress, non-toxic appearing.] HEAD: Normal with no signs of head trauma. EYES: EOMI, conjunctiva normal ENT: Dental nasir right lower molar; no trismus LUNGS: Nonlabored breathing. HEART: [Regular rate and rhythm] ABD: [Soft], [nontender to palpation] EXT: Normal range of motion SKIN: [No rashes or lesions.] NEURO: [Alert and oriented x 3. No gross focal sensory or strength deficits.] PSYCH: Normal affect Course Vital Signs Vital signs: Vital Signs Temperature 97.3 F L 04/08/24 04:13 Pulse Rate 93 04/08/24 04:13 Respiratory Rate 04/08/24 04:13 Blood Pressure 146/91 H 04/08/24 04:13 Pulse Oximetry 100 04/08/24 04:13 Oxygen Delivery Room Air 04/08/24 04:13 Temperature 97.3 F L 04/08/24 04:13 Pulse Rate 93 04/08/24 04:13 Respiratory Rate 20 04/08/24 04:13 Blood Pressure 146/91 H 04/08/24 04:13 Pulse Oximetry 100 04/08/24 04:13 Oxygen Delivery Room Air 04/08/24 04:13 MDM - Dental/Oral MDM Narrative Medical decision making narrative: ED COURSE AND MEDICAL DECISION MAKING: Patient with worsening dental pain and dental decay. No palpable abscess. No systemic signs or symptoms. Antibiotics are administered. Follow-up instructions given for dental/oral surgery clinics. Patient was given return precautions and discharged home in stable condition. Discharge Plan Discharge Clinical Impression: Dental caries Patient Disposition: Home, Self-Care Condition: Stable Instructions: Toothache (ED) Additional Instructions: Please follow up with your dentist; take the antibiotics as prescribed, and return to the ER for any further issues. Patient Language: Emir[place] Prescriptions: New amoxicillin 500 mg capsule 500 mg PO Q8H 7 Days Qty: 21 0RF No Action alprazolam [Xanax] 0.25 mg tablet 0.25 mg PO BID PRN (Reason: anxiety) Qty: 10 0RF alprazolam [Xanax] 0.25 mg tablet 0.25 mg PO BID PRN (Reason: anxiety) Qty: 10 0RF Follow-up/Referrals: PHYSICIAN,[facility] [Primary Care Provider] -
== END 2024-04-08 04:51 | disposition home or self-care (01) ==
LOC: ANHED 04:28
PROVIDERS: Emergency Provider Emergency Medicine
DX: K02.9 Dental caries, unspecified (principal)
CPT/HCPCS: 99283; A9270